=== PATIENT | male | born 1950 | race Caucasian/White ===

== ENCOUNTER 2018-11-29 00:29 | Emergency (ER) | payer MEDICARE ==
[~2018-11-29] VITALS: Ht 180.3 cm; Wt 80.7 kg
--- OUTSIDE RECORDS SUMMARY | 2018-11-29 00:31 | XMS REPORT ---
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 Allergies, Adverse Reactions, Alerts Allergy Name Allergy Type Status Severity Reaction(s) Onset Date Inactive Date Treating Clinician Comments codeine DA Active [place] 2017-11-29 00:00:00 pentazocine DA Active [place] 2017-11-29 00:00:00 meperidine DA Active [place] 2017-11-29 00:00:00 Medications This patient has no known medications.
--- NOTE | 2018-11-29 02:07 | Diagnostic Imaging Report ---
EXAMINATION: Head CT without contrast. HISTORY:Trauma, fall. COMPARISON:None. TECHNIQUE: Multidetector axial images were obtained from the foramen magnum to the vertex without contrast. The images were reconstructed using brain and bone algorithms. Thin section brain images were reformatted into coronal and sagittal planes. Dose modulation, iterative reconstruction, and/or weight based adjustment of the mA/kV was utilized to reduce the radiation dose to as low as reasonably achievable. Intravenous contrast: None IMAGE QUALITY: Acceptable. FINDINGS: Skull/scalp: No lytic or blastic. lesions. No surgical changes. Parenchyma: Cortical based hypodensity in right middle frontal gyrus, precentral gyrus, posterior aspect of right superior frontal gyrus, supramarginal gyrus, superior and inferior parietal lobe and diffuse confluent hypodensity in right centrum semiovale represents age indeterminate possible chronic vascular insult in right MCA territory, MCA/[employer] watershed zone. Old lacunar infarct in right caudate head that extends to the anterior limb of right internal capsule and anterior aspect of right putamen. Age indeterminate lacunar infarct in right subinsular region/inferior and posterior aspect of right putamen. Nonspecific right more than left periventricular, subcortical and deep white matter hypodensity are likely related to small vessel ischemic changes. No acute hemorrhage or mass.. Arteries: No density suggestive of thrombosis. Atherosclerotic calcification in bilateral carotid siphon. Dural sinuses: No abnormal density suggestive of thrombosis. Ventricles: Moderate compensated dilatation due to volume loss with mild exvacuodilatation of right lateral ventricle. No acute hydrocephalus. Extra-axial spaces: No abnormal density. Brain volume: Generalized age-related cerebral volume loss. Craniocervical junction: No mass, Chiari malformation, or basilar invagination. Sella: No mass. Paranasal/mastoid sinuses: Imaged portions unremarkable. IMPRESSION: 1. No acute posttraumatic intracranial abnormality, particularly no acute hemorrhage. 2. Age indeterminate possible chronic vascular insult in right MCA territory and MCA/[employer] watershed zone. Possibility of superimposed acute on chronic vascular insult is not excluded. 3. Chronic lacunar infarct in right striato-capsular region. Age indeterminate lacunar infarct in right subinsular region. 4. Mild supratentorial white matter microvascular ischemic changes. 5. Generalized age-related cerebral volume loss. Signed by: Dr. Katy Bejarano M.D. on 11/29/2018 2:04 AM
--- NOTE | 2018-11-29 02:15 | Diagnostic Imaging Report ---
History: Trauma, fall. Comparison studies: None Technique: Axial images were obtained through the cervical region.. Coronal and sagittal images reconstructed from the axial data. Dose modulation, iterative reconstruction, and/or weight based adjustment of the mA/kV was utilized to reduce the radiation dose to as low as reasonably achievable. Intravenous contrast: None Findings: Fractures: None. Soft tissue injuries: None. Atlantoaxial articulation: Intact. Alignment: Reversal of normal cervical lordosis centered at C4-C5. No scoliosis. 1.5 mm grade 1 anterolisthesis at C3-C4. Cervicomedullary junction: No abnormalities. The foramen magnum is patent. Soft tissues: Multiple surgical clips in left lateral cervical soft tissues. Atherosclerotic calcification in bilateral carotid bulb. Vertebrae: Expected postoperative changes from prior anterior cervical spine fusion at level C4-C5 with osseous fusion and intervertebral disc spacer device. The metallic hardware is intact. Suboptimal evaluation at this level due to metallic streak artifacts. Osseous fusion of posterior elements of C2 and C3. No fractures, infection or neoplasm. Degenerative changes: C2-C3: Moderate bilateral facet arthrosis without significant foraminal stenosis. C3-C4: Posterior disc osteophyte complex results in mild canal stenosis. Severe right foraminal stenosis due to facet and uncovertebral arthrosis. C4-C5: Posterior disc osteophyte complex results in mild to moderate canal stenosis. Moderate left foraminal stenosis due to facet and uncovertebral arthrosis. C5-C6: Moderate degenerative disc disease. Posterior disc osteophyte complex results in severe canal stenosis. Mild right and severe left foraminal stenosis due to facet and uncovertebral arthrosis. C6-C7: Severe degenerative disc disease. Posterior disc osteophyte complex results in moderate canal stenosis. Mild right and moderate left foraminal stenosis due to facet and uncovertebral arthrosis.. IMPRESSION: 1. No acute cervical spine fracture or dislocation. 2. Expected postoperative changes from prior anterior cervical spine fusion at level C4-C5. 3. Ligament, spinal cord and or vascular abnormalities cannot be excluded on the basis of this examination. 4. Cervical spondylosis as detailed above. Signed by: Dr. Katy Bejarano M.D. on 11/29/2018 2:11 AM
== END 2018-11-29 03:17 ==
LOC: ER 00:29
DX: S00.01XA Abrasion of scalp, initial encounter (principal); W01.0XXA Fall on same level from slipping, tripping and stumbling without subsequent striking against object, initial encounter; Y92.008 Other place in unspecified non-institutional (private) residence as the place of occurrence of the external cause; I10 Essential (primary) hypertension; I69.854 Hemiplegia and hemiparesis following other cerebrovascular disease affecting left non-dominant side; I48.91 Unspecified atrial fibrillation; F32.9 Major depressive disorder, single episode, unspecified; F17.210 Nicotine dependence, cigarettes, uncomplicated
CPT/HCPCS: 70450; 72125; 99283

== ENCOUNTER 2019-09-22 19:19 | Emergency (ER) | payer MEDICARE ==
[~2019-09-22] VITALS: Ht 180.3 cm; Wt 69.9 kg
--- NOTE | 2019-09-22 20:16 | Diagnostic Imaging Report ---
CT BRAIN WO HISTORY: Fall COMPARISON: Head CT 11/29/2018 Technique: Noncontrast axial scans were obtained from skull base to the vertex. Coronal and sagittal reconstructions obtained from the axial data. One or more of the following dose reduction techniques were used: Automated exposure control, adjustment of the mA and/or kV according to patient size, and/or utilization of iterative reconstruction technique. DISCUSSION: Scalp/Skull: Unremarkable. Brain sulci: Mildly prominent. Ventricles: Compensatory dilatation. Extra-axial spaces: No masses or fluid collections. Carotid siphon calcifications are present. Parenchyma: There are stable scattered areas of encephalomalacia throughout the right MCA-DARNELL external borderzone watershed territory. Mild bilateral deep white matter hypodensity is likely chronic microvascular ischemic change. There is an associated old right striatocapsular lacunar infarct. Otherwise, no masses, hemorrhage, or large vascular territory acute infarct. Dural sinuses: No abnormal densities. Sellar/Suprasellar region: Intact. Skull base: Intact. Incidental findings: None. IMPRESSION: 1. No acute intracranial abnormalities. 2. Scattered old cortical infarcts throughout the right MCA-DARNELL external border zone watershed territory. 3. Mild supratentorial chronic microvascular ischemic change with old right striatocapsular lacunar infarct. 4. Mild generalized cerebral volume loss. Signed by: Dr. Hakeem Pierre M.D. on 09/22/2019 8:12 PM
--- NOTE | 2019-09-22 20:21 | Diagnostic Imaging Report ---
CT CERVICAL SPINE WO HISTORY: Fall COMPARISON: Cervical spine CT 11/29/2018 TECHNIQUE: CT of the cervical spine without contrast. Sagittal and coronal reformations were created. One or more of the following dose reduction techniques were used: Automated exposure control, adjustment of the mA and/or kV according to patient size, and/or utilization of iterative reconstruction technique. FINDINGS: There are ACDF changes at C4-C5. Cervical lordosis is straightened. There is no significant scoliosis. No definite acute fracture or compression deformity is seen. The craniocervical junction is intact. No gross spinal canal masses are seen. The paravertebral and paraspinal soft tissues are unremarkable. Degenerative changes: Moderate multilevel spondylotic changes are most prominent at C5-C6 and C6-C7. There is partial fusion across the C5-C6 and C6-C7 disc spaces. Minimal grade 1 anterolisthesis of C3 on C4 is due to facet arthrosis, right greater than left. The C2 and C3 facet joints are fused. Additional findings: Surgical clips are seen along the left carotid bifurcation. Prominent right carotid bulb calcified plaque is present as well. IMPRESSION: No acute osseous abnormalities. ACDF at C4-C5 with degenerative changes as described above. Signed by: Dr. Hakeem Pierre M.D. on 09/22/2019 8:18 PM
[2019-09-22 21:08] VITALS: BP 133/76
--- NOTE | 2019-09-22 21:14 | NUR ---
[facility] CALLED FOR TX BACK TO [facility]. ETA 15MN.
--- NOTE | 2019-09-22 21:35 | NUR ---
[facility] HERE TO TX PT. BACK TO [facility]
== END 2019-09-22 21:42 | disposition home or self-care (01) ==
LOC: ER 19:19
DX: S06.0X0A Concussion without loss of consciousness, initial encounter (principal); S00.81XA Abrasion of other part of head, initial encounter; S51.012A Laceration without foreign body of left elbow, initial encounter; W05.0XXA Fall from non-moving wheelchair, initial encounter; Y92.128 Other place in nursing home as the place of occurrence of the external cause
CPT/HCPCS: 70450; 72125; 99284

== ENCOUNTER 2019-09-30 22:25 | Observation (INO) | payer MEDICARE ==
[~2019-09-30] VITALS: Ht 180.3 cm; Wt 69.9 kg
[2019-09-30] MEDS ORDERED: SODIUM CHLORIDE 0.9% 1000ML 1,000 ML IV STA (22:28)
[2019-09-30] MEDS ORDERED: FAMOTIDINE 20 MG/2 ML VIAL IV ONE (22:30)
[2019-09-30 22:58] LABS: BASOPHILS # (AUTO) 0.1 (0.0-0.1); BASOPHILS % 0.4 % (0.0-1.0); EOSINOPHILS # (AUTO) 0.1 (0.0-0.4); HEMATOCRIT 38.7 % (38.2-49.6); HEMOGLOBIN 12.7 g/dL (14.0-18.0); LYMPHOCYTES # (AUTO) 2.5 (1.0-3.2); LYMPHOCYTES % 18.7 % (18.0-39.1); MEAN CORPUSCULAR HEMOGLOBIN 32.7 pg (28-32); MEAN CORPUSCULAR HGB CONC 32.8 g/dL (31-35); MEAN CORPUSCULAR VOLUME 99.7 fL (81-99); MONOCYTES # (AUTO) 0.6 (0.2-0.8); MONOCYTES % 4.6 % (4.4-11.3); NEUTROPHILS % 74.6 % (38.7-80.0); PLATELET COUNT 370 x10e3/uL (140-360); RED BLOOD COUNT 3.88 x10e6/uL (4.3-5.7); RED CELL DISTRIBUTION WIDTH 13.5 % (11.7-14.4)
[2019-09-30] MEDS ORDERED: LORAZEPAM INJ 2 MG/ML VIAL IV ONE (23:15)
[2019-09-30] MEDS ORDERED: DILTIAZEM HCL 5 MG/ML 5 ML VIAL IV ONE (23:15)
[2019-09-30 23:22] LABS: ALANINE AMINOTRANSFERASE 12 IU/L (0-55); ALBUMIN 3.1 g/dL (3.5-5.0); ALKALINE PHOSPHATASE 71 IU/L (40-150); ANION GAP 21.1 mmol/L (8-16); BLOOD UREA NITROGEN 14 mg/dL (7-26); BUN/CREATININE RATIO 20 (6-25); CARBON DIOXIDE 21 mmol/L (22-29); CHLORIDE 106 mmol/L (98-107); CREATINE KINASE 89 IU/L (30-200); EST GLOMERULAR FILTRATION RATE > 60 ML/MIN (60-); MAGNESIUM 1.7 MG/DL (1.3-2.1); POTASSIUM 4.1 mmol/L (3.5-5.1); SODIUM 144 mmol/L (136-145)
[2019-09-30 23:24] LABS: GLUCOSE 42 mg/dL (74-118)
[2019-09-30] MEDS ORDERED: DEXTROSE 50% SYRINGE 50 ML IV ONE (23:30)
[2019-09-30] MEDS ORDERED: ENOXAPARIN INJ 80 MG/0.8 ML SYR SC ONE (23:45)
[2019-09-30] MEDS ORDERED: ONDANSETRON HCL INJ 2MG/ML 2ML 2 MG/ML VIAL IV PRN ×2 (23:45)
[2019-09-30] MEDS ORDERED: LACTULOSE SYRUP 20 GM/30 ML UDC PO PRN (23:45)
[2019-09-30] MEDS ORDERED: DIGOXIN INJ 0.25 MG/ML 2 ML AMP IV ONE (23:45)
[2019-09-30] MEDS ORDERED: DIPHENHYDRAMINE HCL INJ 50 MG/ML VIAL IV PRN (23:45)
[2019-09-30] MEDS ORDERED: ENALAPRILAT IV INJ 1.25 MG/ML VIAL IV PRN (23:45)
[2019-10-01] VITALS (11 sets, daily range): BP systolic 125–188; BP diastolic 67–91
[2019-10-01] MEDS ORDERED: DEXTROSE 5%/LACTATED RINGERS 1,000 ML IV SCH (00:06)
[2019-10-01] MEDS: FAMOTIDINE 20 MG/2 ML VIAL IV SCH ×3 (00:07→20:40)
--- NOTE | 2019-10-01 00:22 | NUR ---
2315: Pt covered in urine and feces. Cleaned and changed at this time. New gown, socks and sheets given; adult diaper applied. Pt tolerated well without complaint. 2345: Pt sleeping; respirations even and unlabored; SR upx2. No acute distress noted. 0015: Pt's blood glucose 126 at this time.
--- NOTE | 2019-10-01 01:00 | Diagnostic Imaging Report ---
EXAMINATION: CHEST SINGLE (PORTABLE) INDICATION: Chest pain COMPARISON: None FINDINGS: AP view TUBES and LINES: None. LUNGS: Lungs are well inflated. Lungs are clear. There is no evidence of pneumonia or pulmonary edema. PLEURA: No pleural effusion or pneumothorax. HEART AND MEDIASTINUM: The cardiomediastinal silhouette is within normal size limits. Aortic arch calcifications. BONES AND SOFT TISSUES: No acute osseous lesion. Surgical clips in the left neck. Partially visualized cervical fixation hardware. Degenerative changes in the shoulders and spine. UPPER ABDOMEN: No free air under the diaphragm. IMPRESSION: No acute thoracic radiographic abnormality. Signed by: Kaleb Masters DO on 10/01/2019 12:57 AM
--- NOTE | 2019-10-01 01:10 | NUR ---
Pt admitted to room 200 via stretcher from home. Pt transferred to bed with max assist d/t CVA with left sided weakness. Pt alert and oriented to name, place. Diagnosis: AA, intoxication, Afib with RVR, and malnutrition. Pt skin multiple scabs to left elbow and left knee, sacrum stage II-wound consult, Niyah applied. Last BM 09/30. Incontinent B/B, wears diaper. c/o chronic pain to left extremities, moderate pain. Oriented to room. Bed low and locked. Bed alarm on. Will continue to monitor.
[2019-10-01] MEDS: LORAZEPAM INJ 2 MG/ML VIAL IV PRN ×2 (04:09→20:52)
--- NOTE | 2019-10-01 04:09 | NUR ---
Pt has increased agitation, threatening to get OOB. Admin prn Ativan.
--- NOTE | 2019-10-01 06:39 | NUR ---
Dr. Olivarez informed of consult.
[2019-10-01 07:15] LABS: BASOPHILS % 0.5 % (0.0-1.0); EOSINOPHILS # (AUTO) 0.2 (0.0-0.4); EOSINOPHILS % 1.8 % (0.0-6.0); HEMATOCRIT 36.4 % (38.2-49.6); HEMOGLOBIN 12.2 g/dL (14.0-18.0); LYMPHOCYTES # (AUTO) 1.9 (1.0-3.2); LYMPHOCYTES % 23.2 % (18.0-39.1); MEAN CORPUSCULAR HGB CONC 33.5 g/dL (31-35); MEAN CORPUSCULAR VOLUME 98.4 fL (81-99); MONOCYTES # (AUTO) 0.6 (0.2-0.8); MONOCYTES % 7.7 % (4.4-11.3); NEUTROPHILS # (AUTO) 5.6 (2.1-6.9); NEUTROPHILS % 66.6 % (38.7-80.0); PLATELET COUNT 317 x10e3/uL (140-360); RED CELL DISTRIBUTION WIDTH 13.4 % (11.7-14.4)
--- NOTE | 2019-10-01 07:15 | NUR ---
PATIENT IN BED RESTING WITH HEAD OF BED ELEVATED, NO DISTRESS NOTED. C/O COLD AND WARM BLANKET PROVIDED. BED IN LOWER POSITION, CALL LIGHT AT REACH.
[2019-10-01 07:35] LABS: ANION GAP 13.5 mmol/L (8-16); BLOOD UREA NITROGEN 14 mg/dL (7-26); BUN/CREATININE RATIO 21 (6-25); CALCIUM 8.4 mg/dL (8.4-10.2); CARBON DIOXIDE 23 mmol/L (22-29); CHLORIDE 109 mmol/L (98-107); CREATININE, SERUM 0.67 mg/dL (0.72-1.25); EST GLOMERULAR FILTRATION RATE > 60 ML/MIN (60-); GLUCOSE 88 mg/dL (74-118); MAGNESIUM 1.5 MG/DL (1.3-2.1); POTASSIUM 3.5 mmol/L (3.5-5.1); SODIUM 142 mmol/L (136-145)
[2019-10-01 07:53] LABS: CREATINE KINASE 100 IU/L (30-200)
[2019-10-01] MEDS ORDERED: FAMOTIDINE 20 MG/2 ML VIAL IV SCH (09:00)
[2019-10-01] MEDS: ASPIRIN 81 MG ENTERIC COATED PO SCH (09:08)
--- NOTE | 2019-10-01 11:19 | NUR ---
PATIENT EXERCISED IN ROOM WITH PHYSICAL THERAPY. REPOSITIONED IN BED WITH CALL LIGHT AT REACH.
[2019-10-01 14:45] LABS: CREATINE KINASE 98 IU/L (30-200)
--- NOTE | 2019-10-01 15:00 | NUR ---
PATIENT ASSISTED WITH DIAPER CHANGE, HAD A LARGE BM. REPOSITIONED IN BED, CALL LIGHT AT REACH.
--- NOTE | 2019-10-01 16:03 | NUR ---
Nutrition Intervention Note RD Recommendation(s) for Physician: -Eduardo BID for wound healing -Ensure daily for added nutrition -Continue cardiac diet Plan of Care: RD following, monitoring for tolerance and adequacy Nutrition reason for involvement: Pressure Ulcer RD Assessment: (10/01/19) Pt is a 69 year old male admitted with alcohol abuse, afib with RVR, intoxication, and malnutrition. Pt stated has been eating most his meals; however, per documentation, pt consumed 25% of breakfast and 50% of lunch today. Pt also mentioned he drinks Ensure. Pt reported he used to weigh 220 lbs in February 2018. Pt currently has a wt of 154 lbs in chart. No N/V/D/C reported and no chewing/swallowing issues. Will continue to monitor. Principal Problems/Diagnoses: alcohol abuse, afib with RVR, intoxication, and malnutrition PMH: atherosclerotic disease, CAD, carotid stenosis, afib, left sided weakness due to CVA in February 2019, bed bound, UTI, decubitus ulcer, peripheral neuropathy, HLD I/O: 240/- GI: last recorded BM 10/01 Skin: stage 2 sacrum pressure ulcer Labs: (10/01/19) Reviewed Meds: (10/01/19) pepcid, metroprolol, zofran, lactulose Ht: 71 inches Wt: 154 lbs BMI: 21.5 kg/m2 IBW: 172 lbs Malnutrition Evaluation (10/01/19) The patient does not meet criteria for a specified degree of malnutrition at this time. Will re-evaluate at follow-up as appropriate. Nutrition Prescription (Diet Order): Cardiac Diet Estimated Nutritional Needs: 1750- 2450 calories/day (25-35 kcal/kg CBW) 70-105 g protein/day (1-1.5 g pro/kg CBW) Diet Adequacy: Pt stated has been eating most his meals; however, pt has been consumed 25-50% of meals today. Tolerance: Tolerating PO Diet Education Needs Assessment: Pt was not interested in diet education Nutrition Care Level: low Nutrition Diagnosis: Increased nutrient needs related to increased demand for protein and kcal as evidenced by stage 2 sacrum pressure ulcer. Goal: Patient will meet 75-100% of estimated needs by follow up Progress: N/A Interventions: fat-modified diet, Commercial beverage Monitoring/Evaluation: -Total energy intake, Total protein intake, Modified diet, Liquid supplement, Weight change, Signed: Sharyn Davis RD, LD
--- NOTE | 2019-10-01 16:41 | Consultation ---
DATE OF CONSULTATION: Cardiac Consultation REASON FOR CONSULTATION: Atrial fibrillation. HISTORY OF PRESENT ILLNESS: Information from the patient and his records. The patient is a poor historian. He is a 69-year-old gentleman, who is known with longstanding history of atrial fibrillation. He had stroke with left body hemiparesis and deformity of the left upper extremity and abnormal gait since 2012. He had several admission with pneumonia, decubitus, and other problems. The patient was recently in nursing or maybe living at assisted place and he was dismissed home after rehab. The patient able to walk with help and assist. The patient brought by EMS personnel because the patient was confused and intoxicated. As per the patient, he slumped over in chair and he was trying to reach something on the bedside, where after that he fall. He was not able to get himself up. He asked for EMS to help him. His blood pressure was 80/40 and heart rate of 104 of atrial fibrillation. The patient had several falls. He called in fact EMS 4 times for assistance and subsequently, they decided to bring him over. As I mentioned, the patient recently discharged from [facility] after recuperation from pneumonia and weakness. I visited with the patient, who claims he is doing well. He denied any symptoms. He said he just drink every night. He denied smoking. Denied having any seizure. He claimed he take his medication, but he does not know the name of his medication. REVIEW OF SYSTEMS: GENERAL: Debility, weakness, repeated fall, and poor appetite. HEENT: No vision problem. No hearing problem. PULMONARY AND CARDIAC: Denied having any angina or severe shortness of breath. : The patient wears diapers. MUSCULOSKELETAL: Aches and pains. NEUROLOGY: Tendency to fall, left body hemiparesis with marked deformity and contraction, more pronounced in the left upper extremity. ENDOCRINE: No diabetes mellitus. SKIN: No rashes. SOCIAL HISTORY: He lives by himself at home. He drinks. He does not smoke. PAST MEDICAL HISTORY: 1. Atrial fibrillation. 2. Cervical spine surgeries, 2012. 3. CVA with left body hemiparesis and marked deformity of the upper extremity with very abnormal gait. 4. Recent admission with pneumonia. 5. Hypertension. 6. Possible coronary artery disease. 7. Sleep apnea. 8. Cataract surgery. FAMILY HISTORY: Unable to get. HOME MEDICATIONS: Not available. PHYSICAL EXAMINATION: VITAL SIGNS: Height of 5 feet 11 inches, weight of 154 pounds, blood pressure 180/90, heart rate of 90, irregularly irregular of atrial fibrillation, and respiratory rate of 18. HEENT: Pupils are reactive. NECK: No elevation of jugular venous pulsation. CHEST: Clear to auscultation and percussion. HEART: Irregularly irregular rate of atrial fibrillation with normal first and second heart sounds. ABDOMEN: Soft with good bowel sounds. EXTREMITIES: Deformity and contraction of left upper extremity, very abnormal gait. NEUROLOGIC: Severe left hemiparesis. LABORATORY DATA: EKG showing atrial fibrillation with fast ventricular response, nonspecific ST-T changes. Electrolytes showed sodium of 142, potassium 3.5, BUN of 14, and creatinine of 0.7. White blood cell count of 8.3, hemoglobin of 12.2, hematocrit 36%, and platelet count of 317,000. Alcohol level of 230. CKs are normal. Digoxin level is less than 0.03. IMPRESSION AND PLAN: 1. Alcohol intoxication. 2. Atrial fibrillation with fast ventricular response. 3. Sequela of major cerebrovascular accident with left body deformity. 4. Pneumonia. 5. Several admission with infection. 6. Tendency to fall. 7. Cervical spine surgery. From a cardiac point of view, we will start the patient on beta-luke. We will start him on small dose of digoxin. Anticoagulation will be a problem, probably I will put him on Eliquis if he can afford that, because he will be very poor compliance for warfarin. We will check his lipid profile, although probably we should not give him statin because of the alcohol abuse. Medical care for the time being for a cardiac issue. There is as per record history of carotid disease, although I think probably his stroke is secondary to atrial fibrillation in the old records, but we cannot find carotid Doppler severe carotid disease, so we will check carotid Doppler and we will check an echocardiogram. We will follow the patient's progression with you and would like to thank you for your kind referral. MD THANIA Gueavra/MODL /[id number]
[2019-10-01] MEDS: APIXABAN 5 MG TABLET PO SCH (17:22)
[2019-10-01] MEDS: METOPROLOL TARTRATE 50 MG TAB PO SCH (17:23)
[2019-10-01] MEDS ORDERED: HYDRALAZINE HCL 20 MG/ML VIAL IV PRN (19:15)
[2019-10-01] MEDS: LISINOPRIL 20 MG TAB PO SCH (20:40)
--- NOTE | 2019-10-02 01:43 | History and Physical ---
HISTORY OF PRESENT ILLNESS: A 69-year-old male, who has a past medical history positive for atrial fibrillation, CHF, hypertension, right CVA with left hemiplegia, was brought to the emergency room because of agitation and alcohol intoxication. The patient apparently slept over in a chair. The patient was admitted to the hospital. REVIEW OF SYSTEMS: CARDIOVASCULAR: He denies chest pain or palpitation. RESPIRATORY: No shortness of breath. No cough. GASTROINTESTINAL: No nausea or vomiting. No diarrhea. GENITOURINARY: No frequency or dysuria. ALLERGIES: HE IS ALLERGIC TO DEMEROL AND CODEINE. SOCIAL HISTORY: He smokes, he drinks. PAST MEDICAL HISTORY: Positive for hypertension, congestive heart failure, right CVA with left hemiplegia, hypertension, atrial fibrillation, erectile dysfunction, sleep apnea. PAST SURGICAL HISTORY: Cataract removal. PHYSICAL EXAMINATION: HEART: Showed irregularly irregular heart rate. Normal S1, S2 sound. LUNGS: Clear bilaterally. ABDOMEN: Soft. EXTREMITIES: Show no evidence of cyanosis or hematoma. NEUROLOGIC: He has left hemiplegia. VITAL SIGNS: Blood pressure 176/88, temperature 98 degrees, heart rate 97 per minute, respiratory rate 18 per minute, oxygen saturation 95%. LABORATORY DATA: On the BMP; sodium 142, potassium 3.5, chloride 109, CO2 23, BUN 14, creatinine 0.67, glucose 88. On CBC; white blood count 8.36, hemoglobin 12.2, hematocrit 36.4, platelet count 317,000. AST 24, ALT 12, total bilirubin 0.4, alkaline phosphatase 71. IMPRESSION: 1. Alcohol intoxication. 2. Atrial fibrillation with tachycardia. 3. Right cerebrovascular accident with left hemiplegia, which is not abdominal. 4. Hypertension. 5. Chronic anemia. 6. Tobacco abuse. PLAN OF TREATMENT: We are going to continue IV fluids, continue aspirin 81 mg daily, Pepcid 20 mg twice a day, lorazepam 2 mg p.o. q.4 hours as needed for agitation, Zofran 4 mg IV q.4 hours as needed for nausea and vomiting, Balsam [place]/castor oil to affected area daily, Benadryl 25 mg q.6 hours as needed for itching. He is taking Eliquis 5 mg twice a day, digoxin 0.125 mg daily, lactulose 20 g twice a day, metoprolol 50 mg twice a day. Also, we start him on lisinopril 20 mg daily. We have a Cardiology consult with Dr. Olivarez. The patient also had a carotid Doppler, which shows some evidence of carotid stenosis on the left bifurcation and also had an endarterectomy on the right carotid artery. MD DONOVAN Coles/DANNY /[id number]
[2019-10-02 04:54] VITALS: BP 127/63
[2019-10-02 05:03] LABS: BASOPHILS % 0.4 % (0.0-1.0); EOSINOPHILS # (AUTO) 0.2 (0.0-0.4); EOSINOPHILS % 1.6 % (0.0-6.0); HEMATOCRIT 34.8 % (38.2-49.6); HEMOGLOBIN 11.6 g/dL (14.0-18.0); LYMPHOCYTES # (AUTO) 1.7 (1.0-3.2); LYMPHOCYTES % 17.4 % (18.0-39.1); MEAN CORPUSCULAR HEMOGLOBIN 32.6 pg (28-32); MEAN CORPUSCULAR HGB CONC 33.3 g/dL (31-35); MEAN CORPUSCULAR VOLUME 97.8 fL (81-99); MONOCYTES % 10.1 % (4.4-11.3); NEUTROPHILS # (AUTO) 6.8 (2.1-6.9); NEUTROPHILS % 70.1 % (38.7-80.0); PLATELET COUNT 307 x10e3/uL (140-360); RED BLOOD COUNT 3.56 x10e6/uL (4.3-5.7); RED CELL DISTRIBUTION WIDTH 13.1 % (11.7-14.4)
[2019-10-02 05:28] LABS: ALANINE AMINOTRANSFERASE 10 IU/L (0-55); ALBUMIN 2.8 g/dL (3.5-5.0); ALBUMIN/GLOBULIN RATIO 0.9 (0.8-2.0); ALKALINE PHOSPHATASE 67 IU/L (40-150); ANION GAP 12.4 mmol/L (8-16); BLOOD UREA NITROGEN 14 mg/dL (7-26); BUN/CREATININE RATIO 21 (6-25); CALCIUM 8.8 mg/dL (8.4-10.2); CARBON DIOXIDE 23 mmol/L (22-29); CHLORIDE 107 mmol/L (98-107); CHOL/HDL RATIO 4.2 (3.9-4.7); CHOLESTEROL 199 MD/DL (0-199); CREATININE, SERUM 0.67 mg/dL (0.72-1.25); EST GLOMERULAR FILTRATION RATE > 60 ML/MIN (60-); GLUCOSE 98 mg/dL (74-118); HDL CHOLESTEROL 47 MG/DL (40-60); LDL CHOLESTEROL 136 MG/DL (60-130); POTASSIUM 3.4 mmol/L (3.5-5.1); SODIUM 139 mmol/L (136-145); TRIGLYCERIDES 79 MG/DL (0-149)
[2019-10-02 05:51] LABS: THYROID STIMULATING HORMONE 1.508 uIU/mL (0.350-4.940)
[2019-10-02 07:10] VITALS: BP 128/67
--- NOTE | 2019-10-02 07:10 | NUR ---
PATIENT IN BED RESTING WITH NO S/S OF DISCOMFORT. DENIED PAIN AT THIS TIME. BED IN LOWER POSITION AND LOCKED, CALL LIGHT AT REACH. BED ALARM ACTIVATED.
[2019-10-02 07:55] VITALS: BP 128/67
[2019-10-02] MEDS ORDERED: BALSAM PERU/CASTOR OIL 60 GM OINT...G. TP SCH (09:00)
[2019-10-02] MEDS ORDERED: DIGOXIN 0.125 MG TAB PO SCH (09:00)
[2019-10-02] MEDS: ASPIRIN 81 MG ENTERIC COATED PO SCH (09:32)
[2019-10-02] MEDS: FAMOTIDINE 20 MG/2 ML VIAL IV SCH (09:32)
[2019-10-02] MEDS: APIXABAN 5 MG TABLET PO SCH ×2 (09:32→16:34)
[2019-10-02] MEDS: LISINOPRIL 20 MG TAB PO SCH (09:33)
[2019-10-02] MEDS: METOPROLOL TARTRATE 50 MG TAB PO SCH ×2 (09:33→16:36)
--- NOTE | 2019-10-02 11:25 | NUR ---
PATIENT ASSISTED WITH DIAPER CHANGE, REPOSITIONED IN BED. ALL PERSONNEL ITEMS CLOSE TO PATIENT. CALL LIGHT AT EASY REACH.
[2019-10-02] MEDS ORDERED: GADOBENATE DIMEGLUMINE 1 ML IV ONE (11:36)
[2019-10-02] MEDS ORDERED: SODIUM CHLORIDE 0.9% 50ML 50 ML ONE (11:38)
--- NOTE | 2019-10-02 11:45 | NUR ---
PATIENT OFF UNIT TO RADIOLOGY.
[2019-10-02 11:57] VITALS: BP 151/76
--- NOTE | 2019-10-02 12:02 | NUR ---
CM spoke with pt regarding dc plan. Pt states he wants to be able to transfer himself again. Willing to go to inpatient rehab. States he does not want to return to another SNF. CM informed Dr. Singh of above. Gave order for inpatient rehab eval. CM to pt's bedside and pt is currently off unit for imaging. CM will return to speak to pt about inpatient rehab and to obtain choice for referral.
--- NOTE | 2019-10-02 12:37 | NUR ---
Spoke to pt at bedside regarding inpatient rehab. Pt signed choice letter for [facility]. Signed copy placed in chart. Copy to pt's transition of care folder. 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
[2019-10-02] MEDS ORDERED: POTASSIUM CHLORIDE 20 MEQ TAB CR PO ONE (14:30)
--- NOTE | 2019-10-02 14:43 | Diagnostic Imaging Report ---
Exam: Neck MRA without with IV contrast History: Carotid stenosis, CVA Comparison studies: None Technique: Precontrast axial 2-D [id number] and coronal contrast enhanced with 3-D MIP reformats. Contrast: 14 cc MultiHance If present, stenosis is calculated utilizing the NASCET method which calculates the degree of stenosis with reference to the normal lumen of the carotid artery distal to the stenosis. Findings: Exam is limited artifacts related to patient motion. In spite of limitations: Aortic arch: Lies outside the imaged of view and cannot be assessed. Common carotid arteries: Patent, no flow limiting stenosis. Left carotid bulb: Luminal irregularity to be related to atherosclerosis or intimal hyperplasia with less than 40% stenosis near the origin of the left internal carotid artery. Could correlate for history of prior and are directly surgical clips are seen in the left neck on the prior cervical spine CT of 09/22/2019. Left internal carotid artery: Patent, no flow limiting stenosis distal to the area of stenosis near the carotid bulb. Left external carotid artery: High-grade stenosis present at the ECA origin. Right carotid bulb: Right internal carotid artery occluded at the right carotid bulb. Right internal carotid artery: Occluded. Left external carotid artery: High-grade stenosis present at the ECA origin. Vertebral arteries: Origin of the left vertebral artery suboptimally evaluated due to motion artifacts. Otherwise patent, no flow limiting stenosis bilaterally. IMPRESSION: 1. Right internal carotid artery occluded near the level of the right carotid bulb. 2. Left internal carotid artery patent with mild (less than 40%) stenosis at the left carotid bulb. Possible prior left endarterectomy which can be correlated with surgical history. 3. High-grade stenosis at the origins of the bilateral external carotid arteries. 4. Patent bilateral vertebral arteries without flow limiting stenosis. Signed by: Dr. Sunil Connelly M.D. on 10/02/2019 2:58 PM
[2019-10-02] MEDS ORDERED: RISPERIDONE 0.5 MG TAB PO PRN (14:45)
[2019-10-02 15:10] VITALS: BP 125/67
--- NOTE | 2019-10-02 15:13 | NUR ---
MD IN TO SEE PATIENT. NOTIFIED OF ABNORMAL LAB RESULT, NEW ORDER RECEIVED.
--- NOTE | 2019-10-02 15:58 | NUR ---
INPATIENT REHAB DISCHARGE INFORMATION PATIENT HAS BEEN ACCEPTED TO: [address] [place] [address] ACCEPTING ASSORTMENT PLANNER: Eboni Jones ACCEPTING MD: Dr. Gloria Toth ROOM: will be assigned on report NURSE CALL REPORT TO: [phone] THE FOLLOWING DOCUMENTS MUST ACCOMPANY PATIENT FOR TRANSFER: copy of chart, transfer MAR COPIED CHART: Sarah, supervisor microfilm duplicating unit MOT INFO RECEIVED FROM: Giana with [facility] ORDER/RECONCILED MED LIST: order on chart [id number] DNR: n/a MOT completed and placed with pt's packet. ALISHA Strange was notified of MOT.
--- NOTE | 2019-10-02 17:14 | NUR ---
CALLED [facility] AT [phone] TO GIVE REPORT, RECEIVING STAFF STATED THAT THEY DO NOT HAVE PATIENT'S INFORMATION; THEY WILL CALL THE NURSE BACK BRITTANI.
--- NOTE | 2019-10-02 17:44 | NUR ---
PATIENT IS TO BE TRANSFERRED TO [facility]. CALL BACK RECEIVED FROM [facility], PATIENT IN GOING TO ROOM 2008. REPORT GIVEN TO RECEIVING NURSE. AWAITING AMBULANCE FOR TRANSPORTATION.
[2019-10-02 20:06] VITALS: BP 147/70
--- NOTE | 2019-10-02 22:44 | Consultation ---
DATE OF CONSULTATION: 10/02/2019 REASON FOR CONSULTATION: 1. Late effect CVA with left hemiplegia. 2. Alcohol intoxication. 3. Atrial fibrillation. 4. CHF. HISTORY: A 69-year-old male with a history of CVA with left-sided hemiplegia and contracture of the left arm and leg back in 2018. He came to the hospital because of alcohol intoxication, found to have atrial fibrillation with tachycardia. Noncompliant with medications. Will not be able to take Coumadin. Was evaluated by Dr. Olivarez. I am being asked to evaluate for rehab needs. PAST MEDICAL HISTORY: Hypertension, CHF, CVA with left-sided hemiplegia, hypertension, atrial fibrillation, erectile dysfunction, sleep apnea. PAST SURGICAL HISTORY: Cataract removal. ALLERGIES: DEMEROL AND CODEINE. HABITS: He smokes. He continues to drink. FAMILY HISTORY: Denies. REVIEW OF SYSTEMS: CARDIAC: Denies any chest pains. RESPIRATORY: No shortness of breath. No cough. GI: No nausea or vomiting. : No frequency or dysuria. NEUROLOGIC: CVA with left-sided dense hemiplegia. MUSCULOSKELETAL: Contracture left arm and left leg. Knee has now contracture about 90 degrees. PHYSICAL EXAMINATION: GENERAL: The patient is awake and alert. He has had therapy. Dense left-sided hemiplegia that is unchanged. HEENT: Eyes, gaze appears to be conjugate. Oral, poor dentition. NECK: Supple. HEART: Regular rate and rhythm. LUNGS: Diminished breath sounds. ABDOMEN: Nontender and nondistended. EXTREMITIES: Functional range of motion of right arm and right leg. No swelling to the right knee. Again, he has contractures and not able to get any full range of motion with passively to the left arm and leg. Sensory johnson denies any changes. Manual muscle testing 5/5 strength in the right arm, right leg. The left upper extremity and lower extremity, he really could not resist much trace movement at best. LABORATORY DATA: White cell count of 13.39, hemoglobin of 12.7, hematocrit 38.7, platelets of 370. Sodium is 139, potassium 3.4, BUN of 14, creatinine 0.7. Neck MRA was done, which showed right internal carotid artery occluded near level of the right carotid bulb, left internal carotid artery with less than 40% stenosis of the left carotid bulb, high-grade stenosis of the origins of the bilateral external carotid arteries. IMPRESSION: 1. Late effect CVA with left-sided hemiparesis. 2. Atrial fibrillation. 3. ETOH intoxication. 4. Hypertension. 5. History of anemia. PLAN: The patient will be going to inpatient rehab. Thank you once again for allowing me to participate in the care of this very interesting patient. Tino Barton DO RPL/MODL /[id number]
[2019-10-03 00:51] VITALS: BP 143/74
--- NOTE | 2019-10-03 01:15 | Discharge Summary ---
HOSPITAL COURSE: A 69-year-old male, who had a past medical history positive for chronic atrial fibrillation, hypertension, heart disease, peripheral vascular disease, erectile dysfunction, sleep apnea, came to the hospital because of alcohol intoxication, apparently he fell. He is having difficulty walking. Apparently, he was in a correction facility for rehabilitation. The patient did have difficulty walking. He is going to be referred to an inpatient rehab facility. PHYSICAL EXAMINATION: HEART: Showed regular rhythm. Normal S1, S2 sound. LUNGS: Clear bilaterally. ABDOMEN: Soft. FINAL IMPRESSION: 1. Alcohol intoxication. 2. Atrial fibrillation with tachycardia. 3. Right cerebrovascular accident with left hemiplegia. 4. Hypertension. 5. Anemia of chronic disease. PLAN OF TREATMENT: We are going to continue with current medication regimen. Continue with physical and occupational therapy. The patient will be on aspirin 81 mg daily, Pepcid 20 mg twice a day, lorazepam that he needs to continue. Continue lisinopril 20 mg daily, Eliquis 2.5 mg twice a day, digoxin 0.125 mg daily, metoprolol 50 mg twice a day. The patient is going to be evaluated to be transferred to [facility] once accepted. MD DONOVAN Coles/DANNY /[id number]
== END 2019-10-02 21:55 ==
LOC: ER 22:25 → ERHOLD 22:37 → MED/SURG2 10-01 01:17
PROVIDERS: ADMIT Internal Medicine; ATTEND Internal Medicine
DX: F10.220 Alcohol dependence with intoxication, uncomplicated (principal); E86.0 Dehydration; E16.2 Hypoglycemia, unspecified; I48.20 Chronic atrial fibrillation, unspecified; Z88.5 Allergy status to narcotic agent; I69.354 Hemiplegia and hemiparesis following cerebral infarction affecting left non-dominant side; I11.0 Hypertensive heart disease with heart failure; I50.9 Heart failure, unspecified; D64.9 Anemia, unspecified; Z72.0 Tobacco use; I69.398 Other sequelae of cerebral infarction; J18.9 Pneumonia, unspecified organism; Z91.81 History of falling; Z91.14 Patient's other noncompliance with medication regimen; I73.9 Peripheral vascular disease, unspecified; G47.30 Sleep apnea, unspecified; N52.9 Male erectile dysfunction, unspecified; D63.8 Anemia in other chronic diseases classified elsewhere; Y90.7 Blood alcohol level of 200-239 mg/100 ml; I65.22 Occlusion and stenosis of left carotid artery
CPT/HCPCS: 36415 ×3; 70549; 71045; 80048; 80053 ×2; 80061; 80162; 80320; 82270; 82550 ×2; 82553 ×2; 82948 ×2; 83735 ×2; 84443; 84484 ×2; 85025 ×3; 93005; 93306; 93880; 96360; 96361; 97110; 97139; 97162; 97530 ×2; 99285; A9577; G0378 ×3; J1160; J1650; J2060 ×2; J7030; J7121; J7799